=== PATIENT | male | born 1975 ===

== ENCOUNTER 2022-08-03 16:30 | Inpatient (IN) | payer OTHER ==
[2022-08-03] MEDS ORDERED: MAGNESIUM HYDROXIDE 2,400 MG/10 ML CUP PO PRN (18:14)
[2022-08-03] MEDS ORDERED: MAG HYDROX/AL HYDROX/SIMETH 30 ML CUP PO PRN (18:14)
[2022-08-03] MEDS ORDERED: ACETAMINOPHEN TAB 325 MG TAB PO PRN (18:14)
[2022-08-03] MEDS ORDERED: hydrOXYzine HCL 50 MG/ML 1 ML VIAL IM PRN (18:15)
[2022-08-03] MEDS ORDERED: OLANZapine 10 MG VIAL IM PRN (18:15)
[2022-08-03] MEDS ORDERED: OLANZapine 5 MG TAB PO PRN (18:15)
[2022-08-03] MEDS ORDERED: hydrOXYzine pamoate 25 MG CAP PO PRN (18:15)
[2022-08-03 23:31] VITALS: PULSE 71
[2022-08-04] MEDS: MIRTAZAPINE 15 MG TAB PO SCH ×2 (00:06→20:28)
[2022-08-04] MEDS: NICOTINE 14MG/24HR PATCH TRANSDERM SCH (09:11)
--- NOTE | 2022-08-04 12:20 | P.HP ---
Psychiatric H&P - . H&P Date: 08/04/22 History & Physical: Allergies Allergy/AdvReac Type Severity Reaction Status Date / Time sulfamethoxazole Allergy Unknown Verified 08/03/22 18:12 Vital Signs Temp 97.2 F L 08/04/22 05:19 Pulse 71 08/04/22 05:19 Resp 18 08/04/22 05:19 BP 159/76 08/04/22 05:19 Pulse Ox 98 08/04/22 05:19 FiO2 Intake & Output 08/03/22 08/04/22 08/04/22 18:59 06:59 18:59 Weight 100 kg 77.3 kg Laboratory Last Values TSH 3.250 mIU/L (0.465-4.680) 08/04/22 09:07 08/04/22 12:20 IDENTIFYING DATA: Patient is a , unemployed, 47-year-old male with no significant psychiatric history presents to the hospital from [facility] under petition and certification for suicide attempt by overdose. HPI: Patient presented to the hospital on 08/04/2022, brought into the hospital from [facility] after being petitioned and certified for a suicide attempt by overdosing on trazodone. Patient reports that he overdosed on 07/25/2022 on trazodone impulsively. He reports that he has been having ongoing marital problems with his and has been feeling elevated anxiety and stress from this. He reports that he is trying to work things out however he does not feel like she wants to continue the but the relationship. Further exacerbating his stressors, the patient lost his job 10 months ago after being employed by the [employer] for 16 years. He vehemently denies that this suicide attempt was premeditated but rather occurred in the context of alcohol use along with a verbal altercation with his 's cousin. This was shortly followed by a verbal altercation with his that Tuesday. He then overdosed on trazodone but vehemently denies that this was an attempt to take his life but rather trying to get him to relax and go to sleep. He reports no prior attempts at suicide. In regards to depressive symptoms, the patient is not reporting any significant symptoms of depression at this time. He denies any sleep changes, weight changes, appetite changes, anhedonia, hopelessness, or helplessness. He is currently denying any suicidal or homicidal ideation, intention, and/or plan. The patient is denying any significant history of bipolar disorder. He denies any grandiosity, increased goal-directed activity, or pressured speech. He reports no history of psychosis. He denies any auditory or visual hallucinations. He denies any paranoia or other delusions. The patient was started on Remeron while admitted at [facility] and has been taking the medication for the past 5 days with no significant side effects. He reports that the medication appears to be helping him with his sleep and his appetite. He has chosen to sign in voluntarily on to the psychiatric unit. PAST PSYCHIATRIC HISTORY: Patient states that he has been previously diagnosed with anxiety. He reports previous trials of Cymbalta, Lexapro, and most recently trazodone. Patient denies any previous psychiatric hospitalizations. Patient denies any psychiatric outpatient follow-up. Patient denies any history of suicide attempts in the past. PMH: Patient denies any significant medical history. ALLERGIES: Sulfamethoxazole CHEMICAL DEPENDENCY HISTORY: Patient reports smoking one pack per day of tobacco. He does report drinking 2-5 alcoholic beverages every other day. He reports occasional marijuana use. He does report a history of illicit drug use when he was in his 20s as he is experimented with cocaine and other psychoactive substances back then. FAMILY PSYCHIATRIC/SUBSTANCE USE HISTORY: He reports his sister has attempted suicide by overdose in the distant past. He otherwise reports no other mental illness in the family. SOCIAL HISTORY: Patient was born and raised in [place], [place]. He is currently to his and this is his second marriage. They have a 3-year-old son together. He has his bachelor's degree in engineering. 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 He reports that he is a nonpracticing Rastafarian. MENTAL STATUS EXAM: General Appearance: Patient appears to be stated age is alert, directable, and attempts to cooperate. Patient appears to have good hygiene and grooming. Behavior: Patient is seated without any agitated behavior. Eye contact is appropriate. Speech: Patient's speech is fluent and nonpressured. Mood/Affect: Patient reports their mood is "doing okay," affect is congruent and euthymic Suicidality/Homicidality: Patient denies having any homicidal ideation intent or plan. Denies any suicidal ideations intent or plan Perceptions: Patient denies any visual hallucinations and denies any auditory hallucinations Though content/process: There is no evidence of any delusional thought content and thought process is linear and goal-directed. Patient is future oriented. Memory and concentration: AOX3, grossly intact for the purposes of this session. Can spell "WORLD" backwards Judgment and insight: Fair STRENGTHS/WEAKNESSES: Strength is that the patient has good insight and judgment. He is future and goal oriented. He has a duty to his son. Weakness includes ongoing marital problems and heavy alcohol use. 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 Patient signed adult voluntary form and medication consent and is placed in patient's chart. -Medications : Remeron 15 mg by mouth at bedtime for depression/insomnia -Zyprexa and Vistaril PRN for agitation/aggression -Patient was counselled on substance abuse and desired to cut back on use -Patient was informed of the risks, benefits and side effects of the medication and patient verbally consented to taking the medications. Patient signed med consent form and was placed in chart. -Internal Medicine consult to perform medical evaluation and physical. -NRT - nicotine patch -SW on board for discharge planning. Encourage patient to participate in groups to work on coping skills.
[2022-08-04 16:26] LABS: LDL Cholesterol,Calculated 101.9 mg/dL (0.0-131.0)
--- NOTE | 2022-08-05 06:36 | P.MDCNMH ---
History of Present Illness H&P Date: 08/04/22 Chief Complaint: Suicidal thoughts 47-year-old male with no significant past medical history Patient was brought into the hospital for evaluation due to suicidal ideation and attempt by overdosing on medications Patient denies any mental health problems from the past. He admits to going through a hard time socially He denies any medical concerns at this time denies any fevers chills nausea vomiting chest pain or abdominal pain He admits to tobacco smoking daily denies any illicit drugs admits to occasional alcohol Review of Systems Pertinent positives as noted in HPI. All other systems were reviewed and are negative Past Medical History Past Medical History: No Reported History History of Any Multi-Drug Resistant Organisms: None Reported Past Surgical History: No Surgical Hx Reported Past Anesthesia/Blood Transfusion Reactions: No Reported Reaction Past Psychological History: Depression Smoking Status: Current every day smoker - Past Family History Family Family Medical History: Coronary Artery Disease (CAD), Diabetes Mellitus Medications and Allergies Home Medications Medication Instructions Recorded Confirmed Type traZODone HCL [Desyrel] 100 mg PO HS 08/03/22 08/03/22 History Allergies Allergy/AdvReac Type Severity Reaction Status Date / Time sulfamethoxazole Allergy Unknown Verified 08/03/22 18:12 Physical Exam Constitutional: No acute distress, conversant, pleasant Eyes: Anicteric sclerae, moist conjunctiva, Pupils equal round reactive to light ENMT: NC/AT Oropharynx clear, no erythema, or exudates Neck: Supple, FROM, no masses, or JVD No carotid bruits No thyromegaly Lungs: Clear to auscultation Clear to percussion Normal respiratory effort, no accessory muscle use Cardiovascular: Heart regular in rate and rhythm, No murmurs, gallops, or rubs No peripheral edema Abdominal: Soft Nontender, no guarding, rebound or rigidity Abdomen moving with respiration Normoactive bowel sounds No hepatomegaly, No splenomegaly No palpable mass No abdominal wall hernia noted Skin: Normal temperature, tone, texture, turgor No induration No subcutaneous nodules No rash, lesions No ulcers Extremities: No digital cyanosis No clubbing Pedal pulses intact and symmetrical Radial pulses intact and symmetrical No calf tenderness Psychiatric: Alert and oriented to person, place and time Appropriate affect fair judgement Neuro Muscles Strength 5/5 in all 4 extremities Sensation to light touch grossly present throughout Cranial nerves II-XII grossly intact No focal sensory deficits Lymphatics: no palpable cervical or supraclavicular , or inguinal lymph nodes Cranial Nerve Examination - Cranial Nerves Cranial Nerve II- Optic: Intact Cranial Nerve III- Oculomotor: Intact Cranial Nerve IV- Trochlear: Intact Cranial Nerve V- Trigeminal: Intact Cranial Nerve - Abducens: Intact Cranial Nerve VII- Facial: Intact Cranial Nerve VIII- Auditory: Intact Cranial Nerve IX- Glossopharyngeal: Intact Cranial Nerve X- Vagus: Intact Cranial Nerve XI- Accessory: Intact Cranial Nerve XII- Hypoglossal: Intact Results Labs: Abnormal Lab Results - Last 24 Hours (Table) 08/04/22 Range/Units 09:07 Triglycerides 151.00 H (0.00-149.00) mg/dL Assessment and Plan Assessment: Suicidal ideation and attempt by overdosing Management per psych Tobacco smoking Patient counseled to quit smoking Follow-up labs Thank you for allowing us to participate in the care of this patient. We will follow peripherally. Do not hesitate to contact us with questions. Someone can be reached from the [facility] hospitalist group at all hours of the day at [phone].
[2022-08-05 07:02] VITALS: BP 112/69; RESP 16; TEMP 98.2
[2022-08-05] MEDS: NICOTINE 14MG/24HR PATCH TRANSDERM SCH (09:01)
--- NOTE | 2022-08-05 11:05 | P.DS ---
Providers Date of admission: 08/03/22 22:30 Expected date of discharge: 08/05/22 Attending physician: Lopez Skinner MD Consults: 08/03/22 18:14 Consult Physician Routine Consulting Provider: Joshua Physician Consult Reason/Comments: H&P and medical Do you want consulting provider notified?: Yes Primary care physician: Stated None - Discharge Diagnosis(es) (1) Adjustment disorder with mixed disturbance of emotions and conduct Current Visit: Yes Status: Acute Priority: High (2) Alcohol use disorder Current Visit: Yes Status: Chronic Priority: Medium Hospital Course: Admission HPI: Patient is a , unemployed, 47-year-old male with no significant psychiatric history presents to the hospital from [facility] under petition and certification for suicide attempt by overdose. Patient presented to the hospital on 08/04/2022, brought into the hospital from [facility] after being petitioned and certified for a suicide attempt by overdosing on trazodone. Patient reports that he overdosed on 07/25/2022 on trazodone impulsively. He reports that he has been having ongoing marital problems with his and has been feeling elevated anxiety and stress from this. He reports that he is trying to work things out however he does not feel like she wants to continue the but the relationship. Further exacerbating his s tressors, the patient lost his job 10 months ago after being employed by the [employer] for 16 years. He vehemently denies that this suicide attempt was premeditated but rather occurred in the context of alcohol use along with a verbal altercation with his 's cousin. This was shortly followed by a verbal altercation with his that Tuesday. He then overdosed on trazodone but vehemently denies that this was an attempt to take his life but rather trying to get him to relax and go to sleep. He reports no prior attempts at suicide. In regards to depressive symptoms, the patient is not reporting any significant symptoms of depression at this time. He denies any sleep changes, weight changes, appetite changes, anhedonia, hopelessness, or helplessness. He is currently denying any suicidal or homicidal ideation, intention, and/or plan. The patient is denying any significant history of bipolar disorder. He denies any grandiosity, increased goal-directed activity, or pressured speech. He reports no history of psychosis. He denies any auditory or visual hallucinations. He denies any paranoia or other delusions. The patient was started on Remeron while admitted at [facility] and has been taking the medication for the past 5 days with no significant side effects. He reports that the medication appears to be helping him with his sleep and his appetite. He has chosen to sign in voluntarily on to the psychiatric unit. Patient states that he has been previously diagnosed with anxiety. He reports previous trials of Cymbalta, Lexapro, and most recently trazodone. Patient denies any previous psychiatric hospitalizations. Patient denies any psychiatric outpatient follow-up. Patient denies any history of suicide attempts in the past. Hospital course: Upon admission to the unit patient was initially presenting as bright and cooperative. Patient was started on Remeron for depression and insomnia. The patient was also seen by medical team for history and physical examination. During the hospitalization, the patient displayed no significant symptoms of depression and was calm and cooperative with staff and peers. He attended groups with a high-level of participation. On the day of discharge, the patient is not reporting any suicidal or homicidal ideation, intention, and/or plan. He is not reporting any auditory or visual hallucinations. He denies any paranoia or other delusions. He reports no access to firearms or other weapons. The patient does have a significant history of heavy alcohol use however was counseled great length on abstaining from all substances including alcohol and marijuana. The patient was offered however declined inpatient substance abuse rehabilitation. The patient is future and goal oriented and expresses a strong duty to his family and a strong desire to live for himself. As the patient longer met criteria for continued inpatient psychiatric hospitalization, he was subsequently discharged. Mental status exam: General Appearance: Patient appears to be stated age is alert, pleasant, and cooperative. Patient is in no acute distress and has fair hygiene and grooming Behavior: Patient is calmly seated without any agitated behavior. Speech: Patient's speech is fluent and nonpressured. Mood/Affect: Patient reports their mood is "feeling good", affect is congruent and euthymic to bright. Suicidality/Homicidality: Patient denies having any suicidal or homicidal ideation intent or plan. Perceptions: Patient denies any auditory or visual hallucinations. Though content/process: There is no evidence of any delusional thought content and thought process is linear and goal-directed. Patient is future and goal oriented. Memory and concentration: AOX3, grossly intact for the purposes of this session. Can spell "WORLD" backwards correctly. 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 Patient will remain at chronically elevated risk due to age demographic, male gender, previous attempts at suicide, and alcohol use. He has numerous protective factors including a supportive family, duty to his children, high-level functioning, and future orientation. -Continue medications: Remeron 15 mg by mouth at bedtime for depression/insomnia -Patient was counseled on the need for medication compliance and appropriate follow-up at mental health and also primary care for medical issues. Patient verbalized understanding and agreed. -Social work to arrange for and conduct family meeting to ensure safety upon discharge and answer any questions/concerns. Social work also to arrange for patients follow up appointments for psychiatric care along with follow up with primary care provider. -Patient counseled on abstaining from recreational drugs and marijuana and alcohol. Was informed/educated on the adverse effects on their physical and mental health. Patient verbally agreed and understood. Patient was offered substance abuse treatment however declined at this time. -Patient was instructed to return to the hospital or seek immediate medical care if their psychiatric or medical symptoms do worsen or reoccur. -Psychoeducation and supportive therapy provided to patient. Risks and benefits of pharmacological treatment versus the risks and benefits of nontreatment weight and discussed. Informed consent discussion held. Common side effects of psychotropics discussed such as, but not limited to headache, GI disturbance, sexual dysfunction, movement disorders, sedation, and orthostatic hypotension. Life threatening and blackbox warnings of prescribed medications also discussed. Potential risks of operating a vehicle or heavy machinery discussed with patient at length. Advised on importance of compliance and a reliable and re sponsible manner. Patient advised to review FDA consumer labeling of all medications prior to taking. Patient verbalized understanding of potential risks, and agrees with current treatment plan. Patient advised to medically contact physician/emergency personnel if any acute changes in condition occur. Vital Signs Temp 98.2 F 08/05/22 06:53 Pulse 71 08/05/22 06:53 Resp 16 08/05/22 06:53 BP 112/69 08/05/22 06:53 Pulse Ox 98 08/04/22 05:19 FiO2 Laboratory Results Estimated Ave Glu mg/dL 93 08/04/22 09:07 Hemoglobin A1c 4.9 % (0.0-6.0) 08/04/22 09:07 Triglycerides 151.00 mg/dL (0.00-149.00) H 08/04/22 09:07 Cholesterol 183.00 mg/dL (0.00-200.00) 08/04/22 09:07 LDL Cholesterol, Calc 101.9 mg/dL (0.0-131.0) 08/04/22 09:07 VLDL Cholesterol, Calc 30.20 mg/dL (5.00-40.00) 08/04/22 09:07 HDL Cholesterol 50.90 mg/dL (40.00-60.00) 08/04/22 09:07 Cholesterol/HDL Ratio 3.60 Ratio 08/04/22 09:07 TSH 3.250 mIU/L (0.465-4.680) 08/04/22 09:07 Allergies Allergy/AdvReac Type Severity Reaction Status Date / Time sulfamethoxazole Allergy Unknown Verified 08/03/22 18:12 Patient Condition at Discharge: Stable Plan - Discharge Summary Discharge Rx Participant: No New Discharge Prescriptions: New Mirtazapine [Remeron] 15 mg PO HS 30 Days tab Discontinued traZODone HCL [Desyrel] 100 mg PO HS Discharge Medication List Mirtazapine [Remeron] 15 mg PO HS 30 Days tab 08/05/22 [Rx] Follow up Appointment(s)/Referral(s): Layo Malone [Other] - 1 Week Discharge Disposition: HOME SELF-CARE
== END 2022-08-05 13:30 | disposition home or self-care (01) | DRG 918 ==
LOC: 3MHU 22:30
PROVIDERS: ADMIT Psychiatry & Neurology Psychiatry; ATTEND Psychiatry & Neurology Psychiatry
DX: T43.212A Poisoning by selective serotonin and norepinephrine reuptake inhibitors, intentional self-harm, initial encounter (principal); F10.10 Alcohol abuse, uncomplicated; F14.11 Cocaine abuse, in remission; F32.A Depression, unspecified; F43.25 Adjustment disorder with mixed disturbance of emotions and conduct; F17.210 Nicotine dependence, cigarettes, uncomplicated; F41.9 Anxiety disorder, unspecified; G47.00 Insomnia, unspecified; Z63.0 Problems in relationship with spouse or partner; Z56.0 Unemployment, unspecified; Z81.8 Family history of other mental and behavioral disorders; Z79.899 Other long term (current) drug therapy; Z88.1 Allergy status to other antibiotic agents
CPT/HCPCS: 80061; 83036; 84443